=== PATIENT | male | born 1980 | race Caucasian/White ===

== ENCOUNTER 2017-07-05 10:34 | Emergency (ER) | payer OTHER ==
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
--- NOTE | 2017-07-05 10:48 | CPEKG ---
Heart Rate: 94 RR Interval: 638 P-R Interval: 152 QRSD Interval: 88 QT Interval: 332 QTC Interval: 416 P Nebo: 93 QRS Nebo: 85 T Wave Nebo: 58 EKG Severity - OTHERWISE NORMAL ECG - EKG Impression: SINUS RHYTHM Electronically Signed By: Rolando Gonzáles 05-Jul-2017 10:54:25
[2017-07-05] MEDS ORDERED: LORazepam 2 MG/ML INJ IVP ONE (10:50)
[2017-07-05] MEDS ORDERED: LORazepam 2 MG/ML INJ ONE (10:50)
[2017-07-05] MEDS ORDERED: NS 1,000 ML IV ONE ×3 (10:53→13:36)
[2017-07-05 11:01] LABS: PLATELET COUNT 250 10^3/uL (150-400)
[2017-07-05 11:10] LABS: CREATINE KINASE 248 IU/L (0-224)
[2017-07-05 14:58] VITALS: BP 142/89
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
== END 2017-07-05 14:59 | disposition left against medical advice (07) ==
LOC: UNDOADMOB 12:17
DX: T75.4XXA Electrocution, initial encounter (principal); E86.9 Volume depletion, unspecified; W86.8XXA Exposure to other electric current, initial encounter; Y99.0 Civilian activity done for income or pay; Y93.89 Activity, other specified
CPT/HCPCS: 96374; J2060